=== PATIENT | female | born 1980 | race Caucasian/White ===

== ENCOUNTER 2018-08-19 16:19 | Emergency (ER) | payer BC ==
[~2018-08-19] VITALS: Ht 160 cm; Wt 62.6 kg
[~2018-08-19 16:19] MED LIST: ALPR0.254; CEPH-443 PO; IBUP-1542 PO; SULF1TAB31 PO; TRAM50TA; TRAZ-111
[2018-08-19 16:23] VITALS: Ht 160 cm; Wt 62.6 kg
--- NOTE | 2018-08-19 16:47 | ERD ---
ER Documentation Chief Complaint Chief Complaint VAGINAL BLEEDING X 2 DAYS. 13 WEEKS. HPI 37-year-old G3, P1 female in her 13th week of presents due to vaginal bleeding. States the vaginal bleeding started 30 minutes ago. States she has been through 1 pad since then. She has had a miscarriage in the past. She is to set her OB yesterday and received an ultrasound which was within normal limits. Denies any cramping, abdominal pain, flank pain, dysuria, fevers, lightheadedness, palpitations. History of substance abuse disorder and bipolar. ROS All systems reviewed and are negative except as per history of present illness. Medications Home Meds Active Scripts Nitrofurantoin Monohyd Macrocr* (Macrobid*) 100 Mg Capsr, 100 MG PO HS for UTI for 7 Days, CAP Prov:TRAVIS DUONG 08/19/18 Ibuprofen* (Motrin*) 600 Mg Tab, 600 MG PO Q6, #30 TAB Prov:MONTANA NELSON PA-C 12/03/17 Cephalexin* (Keflex*) 500 Mg Capsule, 500 MG PO QID for 7 Days, CAP Prov:MONTANA NELSON PA-C 12/03/17 Sulfamethoxazole/Trimethoprim* (Bactrim Ds* Tablet) 1 Each Tablet, 1 TAB PO BID, #14 TAB Prov:MONTANA NELSON PA-C 12/03/17 Reported Medications Tramadol Hcl* (Ultram*) 50 Mg Tablet 06/23/10 Alprazolam (Xanax) 0.25 Mg Tab 05/29/09 Trazodone Hcl* (Trazodone Hcl*) 50 Mg Tablet 05/29/09 Allergies Allergies: Coded Allergies: aloe vera (Verified Allergy, Mild, RASH, 11/22/09) latex (Verified Allergy, Mild, RASH, 11/22/09) venlafaxine (Verified Allergy, Mild, HALLUCINATIONS, 11/22/09) PMhx/Soc History of Surgery: Yes (L ANKLE ) Anesthesia Reaction: No Hx Neurological Disorder: No Hx Respiratory Disorders: No Hx Cardiac Disorders: No Hx Psychiatric Problems: Yes (DEPRESSION, BIPOLAR, ANXIETY) Hx Miscellaneous Medical Probl: Yes (GERD) Hx Alcohol Use: No Hx Substance Use: Yes (FORMER OPIATES/ BENZOS) Hx Tobacco Use: No FmHx Family History: No diabetes, No coronary disease, No other Physical Exam Vitals Vital Signs Date Temp Pulse Resp B/P (MAP) Pulse Ox O2 O2 Flow FiO2 Time Delivery Rate 08/19/18 98.4 107 18 143/78 98 16:23 (99) Physical Exam Const: No acute distress Head: Atraumatic Eyes: Normal Conjunctiva ENT: Normal External Ears, Nose and Mouth. Neck: Full range of motion. No meningismus. Resp: Clear to auscultation bilaterally Cardio: Regular rate and rhythm, no murmurs Abd: Soft, non tender, non distended. Normal bowel sounds Skin: No petechiae or rashes Back: No midline or flank tenderness Ext: No cyanosis, or edema Neur: Awake and alert Psych: Normal Mood and Affect Result Diagram: 08/19/18 1653 Results 24 hrs Laboratory Tests Test 08/19/18 16:53 White Blood Count 9.0 10^3/ul Red Blood Count 4.50 10^6/ul Hemoglobin 13.3 g/dl Hematocrit 39.0 % Mean Corpuscular Volume 86.7 fl Mean Corpuscular Hemoglobin 29.6 pg Mean Corpuscular Hemoglobin Concent 34.1 g/dl Red Cell Distribution Width 13.7 % Platelet Count 157 10^3/UL Mean Platelet Volume 11.9 fl Immature Granulocytes % 0.400 % Neutrophils % 71.9 % Lymphocytes % 21.0 % Monocytes % 5.9 % Eosinophils % 0.6 % Basophils % 0.2 % Nucleated Red Blood Cells % 0.0 /100WBC Immature Granulocytes # 0.040 10^3/ul Neutrophils # 6.5 10^3/ul Lymphocytes # 1.9 10^3/ul Monocytes # 0.5 10^3/ul Eosinophils # 0.1 10^3/ul Basophils # 0.0 10^3/ul Nucleated Red Blood Cells # 0.0 10^3/ul Urine Color RED Urine Clarity SLIGHTLY CLOUDY Urine pH 6.0 Urine Specific [place] 1.018 Urine Ketones TRACE mg/dL Urine Nitrite NEGATIVE mg/dL Urine Bilirubin NEGATIVE mg/dL Urine Urobilinogen NEGATIVE mg/dL Urine Leukocyte Esterase 2+ [place]/ul Urine Microscopic RBC > 182 /HPF Urine Microscopic WBC 10 /HPF Urine Squamous Epithelial Cells MODERATE /HPF Urine Bacteria FEW /HPF Urine Mucus FEW /HPF Urine Hemoglobin 3+ mg/dL Urine Glucose NEGATIVE mg/dL Urine Total Protein 1+ mg/dl Beta HCG, Quantitative 141038.0 mIU/ml Procedures/MDM DIAGNOSTIC IMAGING REPORT Patient: MARCELLE GRIDER : 1980 Age: 37 Sex: F MR #: [id number] DOS: 08/19/18 1642 Ordering MD: TRAVIS DUONG Location: [facility] Room/Bed: PROCEDURE: US OB. CLINICAL INDICATION: Vaginal bleeding in early . TECHNIQUE: Transabdominal views of the pelvis are available for review. COMPARISON: No prior studies are available for comparison. FINDINGS: A single intrauterine gestational sac is evident. [place]-rump length: 7.4 cm Gestational sac diameter: 8.1 cm heart rate: 143 beats per minute. Placenta: Posterior, unremarkable Ultrasound estimated gestational age: 13 weeks 4 days No ovarian or adnexal mass lesion is seen. There is no free fluid. . IMPRESSION: 1. Single live intrauterine with an estimated gestational age of 13 weeks 4 days. This yields an estimated due date of 02/20/2019 compared with a menstrual due date of 02/27/2019. RPTAT:AAJJ Physician Vega Date Time Electronically viewed and signed by Physician Vega on 08/19/2018 17:49 GW/ CC: TRAVIS DUONG [id number] ER Course: CBC, UA, beta quant HCG, type and RH, vaginal US/abdominal US ordered. UA was positive for UTI. MDM: CBC, UA, beta quant HCG, type and RH, vaginal US/abdominal US ordered. Ultrasound showed single live intrauterine . UA was positive for UTI. Patient will replace with Macrobid as she stated Keflex makes her itch. I have low suspicion for ectopic based on results of US, hemodynamic stability, physical exam and patient history. I have low suspicion for septic , pyelonephritis, placenta abrupta, appendicitis, cholecystitis, bowel obstruction, ovarian torsion, symptomatic anema, PID, surgical abdomen, or other life threatening conditions based on patient history, physical exam, and lab/imaging results. Patient discharged with strict ER precautions. 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 All questions answered at discharge. Departure Diagnosis: Primary Impression: UTI (urinary tract infection) during Trimester: second trimester Qualified Codes: O23.42 - Unspecified infection of urinary tract in , second trimester Additional Impression: Vaginal bleeding in Condition: Stable TRVAIS DUONG August 19, 2018 16:47
[2018-08-19] MEDS ORDERED: NITR-58 PO (18:16)
[2018-08-19 18:35] VITALS: BP 106/64; PULSE 79; RESP 18
== END 2018-08-19 18:37 | disposition home or self-care (01) ==
LOC: FTE 16:19
DX: O23.41 Unspecified infection of urinary tract in pregnancy, first trimester (principal); Z3A.13 13 weeks gestation of pregnancy
CPT/HCPCS: 36415; 76801; 81001; 84702; 85025; 86900; 86901

== ENCOUNTER 2018-11-04 18:23 | Outpatient (CLI) | payer BC, MEDICAID ==
[~2018-11-04] VITALS: Ht 160 cm; Wt 68.0 kg
[~2018-11-04 18:23] MED LIST changes: +AMPI500C9 PO; +AMPI500V14 IJ; +LAMO150T3 PO; +NITR-58 PO; +PREN-99 PO
[2018-11-04 18:58] VITALS: Ht 160 cm; Wt 68.0 kg
[2018-11-04 18:59] VITALS: BP 115/73; PULSE 94; RESP 18
[2018-11-04] MEDS ORDERED: LACTATED RINGER'S 1,000 ML IV ONE ×2 (20:00→22:00)
[2018-11-04] MEDS ORDERED: ONDANSETRON 4 MG INJ IV STA (21:03)
[2018-11-04] MEDS ORDERED: ONDANSETRON 4 MG INJ ONE (21:10)
--- NOTE | 2018-11-05 00:14 | TRIAGE ---
OB Triage Datetime Report Generated by CPN: 11/05/2018 00:14 Datetime: 11/04/2018 23:45 Temperature Route: Oral Datetime: 11/04/2018 23:42 Labor Evaluation Frequency: NONE Monitor Mode: External Resting Tone [place]: Relaxed Heart Rate FHR Baseline Rate: 155 Monitor Mode: External US Variability: Moderate 6-25 bpm Accelerations: 10X10 Decelerations: None Category: Category I Pain Assessment Pain Scale: 3 Pain Presence: Intermittent Pain Type: Ache Pain Location: Back Pain Goal: 3 Datetime: 11/04/2018 23:00 Labor Evaluation Frequency: OCCASIONAL Monitor Mode: External Duration (sec)2399: 50-80 Quality: Mild Resting Tone [place]: Relaxed Heart Rate FHR Baseline Rate: 155 Monitor Mode: External US Variability: Moderate 6-25 bpm Accelerations: None Decelerations: None Category: Category I Comments: SOME LOSS OF CONTACT PT SITTING IN HIGH [place]; APPROPRIATE FOR [place] Pain Assessment Pain Scale: 3 Pain Presence: Intermittent Pain Type: Cramping; Ache Pain Location: Abdomen; Back Pain Goal: 3 Pain Assessment Comments: PT STATES SHE IS FEELING MUCH BETTER Datetime: 11/04/2018 22:00 Labor Evaluation Frequency: 3-5 Monitor Mode: External Duration (sec)2399: 50-80 Quality: Mild Resting Tone [place]: Relaxed Heart Rate FHR Baseline Rate: 150 Monitor Mode: External US Variability: Moderate 6-25 bpm Accelerations: 10X10 Decelerations: None Comments: APPROPRIATE FOR [place] Pain Assessment Pain Scale: 5 Pain Presence: Intermittent Pain Type: Cramping; Ache Pain Location: Abdomen; Back Pain Goal: 3 Datetime: 11/04/2018 21:00 Labor Evaluation Frequency: 5-8 Monitor Mode: External Duration (sec)2399: 50-80 Quality: Mild Resting Tone [place]: Relaxed Heart Rate FHR Baseline Rate: 150 Monitor Mode: External US Variability: Moderate 6-25 bpm Accelerations: None Decelerations: None Category: Category I Comments: APPROPRIATE FOR [place] Pain Assessment Pain Scale: 8 Pain Presence: Intermittent Pain Type: Cramping; Ache Pain Location: Abdomen; Back Pain Goal: 3 Datetime: 11/04/2018 20:00 Labor Evaluation Frequency: 3.5-7 Monitor Mode: External Duration (sec)2399: 50-90 Quality: Mild Resting Tone [place]: Relaxed Heart Rate FHR Baseline Rate: 150 Monitor Mode: External US Variability: Moderate 6-25 bpm Accelerations: 15X15 Decelerations: None Category: Category I Pain Assessment Pain Scale: 8 Pain Presence: Intermittent Pain Type: Cramping; Ache Pain Location: Abdomen; Back Pain Goal: 3 Datetime: 11/04/2018 19:09 Stage of : OB Triage Assessment Type: Triage Maternal Assessment Level of Consciousness: Keenly Alert, Responsive DTR's/Clonus: DTRs 2+; No Clonus Headache: Denies Blurred Vision: No Respiratory Effort: Unlabored; Regular Rhythm; Equal Expansion Breath Sounds, Left: Clear and Equal Breath Sounds, Right: Clear and Equal Nausea/Vomiting: Denies RUQ Epigastric Pain: Denies Lower Extremities Edema: None Degree: None Upper Extremities Edema: None Degree: None Facial Edema: None Temperature Route: Oral Fall Risk Assessment History of Falling: (0) No Secondary Diagnosis: (0) No Ambulatory Aid: (0) Bedrest/Nurse Assist IV Therapy: (0) No Gait: (0) Normal/Bedrest/Immobile Mental Status: (0) Oriented to Own Ability Fall Score: 0 Fall Risk Score Definition: No Risk: No action required Labor Evaluation Frequency: x4 Monitor Mode: External Duration (sec)2399: 40-50 Quality: Mild Resting Tone [place]: Relaxed Heart Rate FHR Baseline Rate: 150 Monitor Mode: External US FHR Baseline Changes: No Baseline Change Variability: Moderate 6-25 bpm Accelerations: 10X10 Decelerations: Variable Comments: appropriate for [place] Pain Assessment Pain Scale: 4 Pain Presence: Constant Pain Type: Ache Pain Location: Abdomen; Back Datetime: 11/04/2018 19:07 EGA: 24.2 Datetime: 11/04/2018 19:06 Time of Arrival: 11/04/2018 18:10 Arrived By: Ambulatory Arrived From: Home Chief Complaint: pain in the back on the right side radiating to the lower abdomen on the right elizabeth e N/V Fever 100.4 at home Movement: Present Contractions: Denies/Absent Rupture of Membranes: Denies Vaginal Bleeding: None Vaginal Discharge: Denies Recent Sexual Intercouse: Denies Abdominal Trauma: Not Applicable Patient Complaints: Other Initial Plan: HUGHT
--- NOTE | 2018-11-05 00:38 | PN ---
Triage Information Date/Time 11/05/1812/16/22 Reason for visit: nausea and vomiting,and low grade fever and lower backpain Weeks of Gestation 24w2d /Para Diabetes: none Hypertention: none Additional information HAS EEN ON AMPICILLIN 500MG Q6HRS for UTI lamictal 150mg daily Objective Vital Signs Date Temp Pulse Resp B/P (MAP) Pulse Ox O2 O2 Flow FiO2 Time Delivery Rate 11/04/18 98.1 94 18 115/73 18:59 (87) Intake and Output 11/04/18 11/04/18 11/05/18 1515:00 23:00 07:00 IntakeIntake Total 1000 ml 1000 ml BalanceBalance 1000 ml 1000 ml Heart Rate: 150's (171) Heart Rate Comments adequate for [place] Contractions: None Exam CVA neg for tenderness bilaterally Results/Medications Result Diagram: 11/04/18204711/04/182047 Results 24 hrs Laboratory Tests Test 11/04/18 19:30 11/04/18 20:48 Urine Color STRAW Urine Clarity CLEAR Urine pH 7.0 Urine Specific [place] 1.004 Urine Ketones 1+ H Urine Nitrite NEGATIVE Urine Bilirubin NEGATIVE Urine Urobilinogen NEGATIVE Urine Leukocyte Esterase NEGATIVE Urine Hemoglobin NEGATIVE Urine Glucose NEGATIVE Urine Total Protein NEGATIVE White Blood Count 10.2 Red Blood Count 3.86 L Hemoglobin 11.2 L Hematocrit 34.4 L Mean Corpuscular Volume 89.1 Mean Corpuscular Hemoglobin 29.0 Mean Corpuscular Hemoglobin Concent 32.6 Red Cell Distribution Width 13.6 Platelet Count 152 Mean Platelet Volume 12.3 H Immature Granulocytes % 0.400 Neutrophils % 74.1 Lymphocytes % 18.0 Monocytes % 6.8 Eosinophils % 0.5 Basophils % 0.2 Nucleated Red Blood Cells % 0.0 Immature Granulocytes # 0.040 H Neutrophils # 7.6 H Lymphocytes # 1.8 Monocytes # 0.7 Eosinophils # 0.1 Basophils # 0.0 Nucleated Red Blood Cells # 0.0 Sodium Level 136 Potassium Level 3.5 Chloride Level 104 Carbon Dioxide Level 25 Anion Gap 7 Blood Urea Nitrogen 6 L Creatinine 0.49 Est Glomerular Filtrat Rate mL/min > 60 Glucose Level 78 Calcium Level 9.1 Total Bilirubin 0.4 Direct Bilirubin 0.00 Indirect Bilirubin 0.4 Aspartate Amino Transf (AST/SGOT) 20 Alanine Aminotransferase (ALT/SGPT) 14 Alkaline Phosphatase 98 Total Protein 7.2 Albumin 3.8 Globulin 3.40 H Albumin/Globulin Ratio 1.11 Amylase Level 137 H Lipase 92 Imaging Results CVL 6cm MVP 7.5 EFW 922gm transverse lie Disposition: Discharge Assessment/Plan A IUP 24w2d nausea and vomiting /gastric irritation? by medication under tx for UTI P discharge home f/u with her OB RANJITH CASTELLANO MD Nov 05, 2018 00:31
== END 2018-11-04 23:56 | disposition home or self-care (01) ==
LOC: OBT 18:23 → L-D 18:23 → OBT 23:56
PROVIDERS: ATTEND Obstetrics & Gynecology
DX: O21.2 Late vomiting of pregnancy (principal); O23.42 Unspecified infection of urinary tract in pregnancy, second trimester; Z3A.24 24 weeks gestation of pregnancy
CPT/HCPCS: 36415; 76815; 76817; 80053; 81003; 82150; 83690; 85025; 96360; 96361; J2405; J7120; Z7500; G0463

== ENCOUNTER 2018-12-13 09:53 | Outpatient (CLI) | payer MEDICAID, OTHER ==
[~2018-12-13] VITALS: Ht 160 cm; Wt 72.1 kg
[~2018-12-13 09:53] MED LIST changes: +ALBU2.5V3 NEB; -ALPR0.254; -AMPI500V14 IJ; -CEPH-443 PO; +FER325 PO; -IBUP-1542 PO; -NITR-58 PO; -SULF1TAB31 PO; -TRAM50TA; -TRAZ-111
[2018-12-13 10:10] VITALS: Ht 160 cm; Wt 72.1 kg
[2018-12-13 10:11] VITALS: BP 97/59; PULSE 125; RESP 19
[2018-12-13] MEDS ORDERED: ONDANSETRON 4 MG INJ IV STA (11:27)
[2018-12-13] MEDS ORDERED: LACTATED RINGER'S 1,000 ML IV ONE (11:30)
[2018-12-13] MEDS ORDERED: LACTATED RINGER'S 1,000 ML IV SCH (11:30)
== END 2018-12-13 14:47 | disposition home or self-care (01) ==
LOC: OBT 09:53 → L-D 09:53 → OBT 14:47
PROVIDERS: ATTEND Obstetrics & Gynecology
DX: O26.893 Other specified pregnancy related conditions, third trimester (principal); R10.2 Pelvic and perineal pain; O21.2 Late vomiting of pregnancy; O09.523 Supervision of elderly multigravida, third trimester; Z3A.29 29 weeks gestation of pregnancy
CPT/HCPCS: 36415; 76815; 76817; 80053; 80307; 81001; 82150; 83690; 85025; 96360; 96361; J2405; J7120; Z7500; 81003; G0463

== ENCOUNTER 2019-01-29 09:55 | Inpatient (IN) | payer OTHER ==
[~2019-01-29] VITALS: Ht 160 cm; Wt 74.0 kg
[~2019-01-29 09:55] MED LIST changes: -ALBU2.5V3 NEB; -AMPI500C9 PO
[2019-01-29 10:20] VITALS: Ht 160 cm; Wt 74.0 kg
[2019-01-29 10:21] VITALS: BP 102/67; PULSE 130; RESP 20
[2019-01-29] MEDS ORDERED: LACTATED RINGER'S 1,000 ML IV SCH (12:00)
[2019-01-29] MEDS: LACTATED RINGER'S 1,000 ML IV SCH ×2 (13:42→20:50)
[2019-01-29] MEDS ORDERED: PANTOPRAZOLE 40 MG INJ IV ONE (14:00)
[2019-01-29] MEDS: ONDANSETRON 4 MG INJ IV PRN (15:58)
[2019-01-30] MEDS: LACTATED RINGER'S 1,000 ML IV SCH ×3 (03:40→18:13)
[2019-01-30] MEDS: LAMOTRIGINE 25 MG TAB PO SCH (09:00)
[2019-01-30] MEDS: ONDANSETRON 4 MG INJ IV PRN (16:16)
[2019-01-30] MEDS ORDERED: LOPERAMIDE 2 MG CAP PO PRN (23:30)
[2019-01-31] MEDS: ONDANSETRON 4 MG INJ IV PRN (00:20)
[2019-01-31] MEDS: LACTATED RINGER'S 1,000 ML IV SCH (02:10)
[2019-01-31] MEDS: LAMOTRIGINE 25 MG TAB PO SCH (08:50)
== END 2019-01-31 15:40 | disposition home or self-care (01) | DRG 832 ==
LOC: L-D 09:55 → OBT 09:55 → PP1 12:45 → OBT 12:45 → PP1 23:11
PROVIDERS: ADMIT Obstetrics & Gynecology; ATTEND Obstetrics & Gynecology
PROC: 4A1HXCZ Monitoring of Products of Conception, Cardiac Rate, External Approach (ICD-10-PCS; principal; 2019-01-29)
DX: O99.113 Other diseases of the blood and blood-forming organs and certain disorders involving the immune mechanism complicating pregnancy, third trimester (principal); O12.13 Gestational proteinuria, third trimester; D69.6 Thrombocytopenia, unspecified; O99.613 Diseases of the digestive system complicating pregnancy, third trimester; K52.9 Noninfective gastroenteritis and colitis, unspecified; Z3A.36 36 weeks gestation of pregnancy
CPT/HCPCS: 76818; 80053; 81001; 81003; 82150; 82575; 83690; 84156; 84560; 85025; 85384; 85610; 85730; 96360; 96361; C9113; G0463; J2405; J7120